=== PATIENT | male | born 1975 | race Caucasian/White ===

== ENCOUNTER 2019-02-23 08:22 | Emergency (ER) | payer MEDICAID ==
[~2019-02-23] VITALS: Ht 166.4 cm; Wt 88.9 kg
[~2019-02-23 08:22] MED LIST: METR500T1 PO; SULF-58 PO; [UNRECOGNIZED DRUG - REMARK]
[2019-02-23 08:33] VITALS: BP 125/68
[2019-02-23] MEDS ORDERED: KETOROLAC 30 MG/ML VIAL IM ONE (08:55)
--- NOTE | 2019-02-23 08:55 | NUR ---
C/O RLQ ABD PAIN /10 X3 MONTHS ACCOMPANIED BY INTERMITTENT DYSURIA. PT DENIES N/V/D/FEVER. ABD IS SOFT/FLAT/NON TENDER TO PALPATION. LBM TODAY & REGULAR PER PT. BOWEL SOUNDS PRESENT X4. BED IN LOW POSTION, SIDE RAIL UP X1. PT PLACED IN GOWN AND PROVIDED BLANKET
--- NOTE | 2019-02-23 08:56 | NUR ---
DR. RADER AT BEDSIDE EVALUATING PT
--- NOTE | 2019-02-23 09:04 | NUR ---
LAB AT BEDSIDE
--- NOTE | 2019-02-23 09:20 | NUR ---
PT LEFT TO CT
[2019-02-23 09:21] LABS: BASOPHILS # (AUTO) 0.1 K/uL (0.00-0.22); BASOPHILS % (AUTO) 2.3 % (0.0-2.0); EOSINOPHILS # (AUTO) 0.1 K/uL (0-0.4); EOSINOPHILS % (AUTO) 2.8 % (0.0-4.0); HEMATOCRIT 45.7 % (36-52); HEMOGLOBIN 15.4 g/dL (12.0-18.0); LYMPHOCYTES # (AUTO) 1.6 K/uL (2.0-11.5); LYMPHOCYTES % (AUTO) 37.2 % (20.5-51.1); MEAN CORPUSCULAR HEMOGLOBIN 32 pg (27-31); MEAN CORPUSCULAR HGB CONC 34 g/dL (33-37); MEAN CORPUSCULAR VOLUME 95.5 fL (80-94); MONOCYTES # (AUTO) 0.4 K/uL (0.8-1.0); NEUTROPHILS # (AUTO) 2.2 K/uL (1.8-7.7); NEUTROPHILS % (AUTO) 49.7 % (42.2-75.2); PLATELET COUNT (AUTO) 211 K/uL (140-450); RED BLOOD CELL COUNT(AUTO) 4.78 MIL/uL (4.20-6.10); RED CELL DISTRIBUTION WIDTH 12.7 % (11.6-13.7); WHITE BLOOD COUNT (AUTO) 4.4 K/uL (4.8-10.8)
[2019-02-23 09:26] LABS: APPEARANCE,URINE CLEAR (CLEAR); BILIRUBIN,URINE NEGATIVE (NEGATIVE); BLOOD, URINE NEGATIVE (NEGATIVE); COLOR,URINE YELLOW (YELLOW); LEUKOCYTE ESTERASE ,URINE NEGATIVE (NEGATIVE); NITRITE, URINE NEGATIVE (NEGATIVE); PH,URINE 7.5 (5.0-9.0); UGLUCOSE NEGATIVE (NEGATIVE)
[2019-02-23 09:27] LABS: ANION GAP 12.9 (8-16); CARBON DIOXIDE 23.4 mmol/L (21-32); CREATININE 0.8 mg/dL (0.7-1.3); POTASSIUM 4.3 mmol/L (3.5-5.1)
[2019-02-23 09:33] LABS: ALBUMIN 3.7 g/dL (3.4-5.0); RBC,URINE 0-5 /HPF (0-5); TOTAL BILIRUBIN 0.5 mg/dL (0.0-1.0); WBC,URINE 0-5 /HPF (0-5)
--- NOTE | 2019-02-23 09:40 | NUR ---
PT RETURNED FROM CT
--- NOTE | 2019-02-23 10:11 | NUR ---
PT RESTING IN BED, NO NEW NEEDS AT THIS TIME.
[2019-02-23] MEDS ORDERED: NACL 0.9% 1,000 ML IV ONE (10:20)
[2019-02-23 11:44] VITALS: BP 121/75
--- NOTE | 2019-02-23 11:44 | NUR ---
Patient discharged with v/s stable. Written and verbal after care instructions given and explained. Patient alert, oriented and verbalized understanding of instructions. Ambulatory with steady gait. All questions addressed prior to discharge. ID band removed. Patient advised to follow up with PMD. Rx of NORCO & COLACE given. Patient educated on indication of medication including possible reaction and side effects. Opportunity to ask questions provided and answered.
== END 2019-02-23 11:44 | disposition home or self-care (01) ==
LOC: MED 08:22
DX: K40.90 Unilateral inguinal hernia, without obstruction or gangrene, not specified as recurrent (principal); R74.8 Abnormal levels of other serum enzymes; I10 Essential (primary) hypertension; F17.290 Nicotine dependence, other tobacco product, uncomplicated; Z79.899 Other long term (current) drug therapy
CPT/HCPCS: 36415; 74176; 80053; 81001; 82150; 83690; 85025; 96372; 99284; J1885; J7030